=== PATIENT | female | born 1975 | race Asian ===

== ENCOUNTER 2020-10-18 10:59 | Emergency (ER) | payer OTHER ==
[~2020-10-18] VITALS: Ht 152.4 cm; Wt 76.8 kg
[2020-10-18] MEDS ORDERED: CHOL100044 PO (11:08)
[2020-10-18] MEDS ORDERED: HYDR25TA2 PO (11:08)
[2020-10-18] MEDS ORDERED: LISI-894 PO (11:08)
[2020-10-18] MEDS ORDERED: PRAV40TA4 PO (11:08)
[2020-10-18 12:10] VITALS: BP 150/95
== END 2020-10-18 12:10 | disposition home or self-care (01) ==
LOC: EMS 11:04
DX: M79.662 Pain in left lower leg (principal); E78.00 Pure hypercholesterolemia, unspecified; I10 Essential (primary) hypertension; Z79.899 Other long term (current) drug therapy
CPT/HCPCS: 93971; 99284; Z7502

== ENCOUNTER 2023-04-30 08:30 | Emergency (ER) | payer OTHER ==
[~2023-04-30] VITALS: Ht 157.5 cm; Wt 75.0 kg
[~2023-04-30 08:30] MED LIST: CHOL25TA4 PO; HYDR25TA2 PO; LISI-894 PO; PRAV40TA4 PO
[2023-04-30 08:35] VITALS: BP 163/98; PULSE 68; RESP 18; TEMP 98.5
[2023-04-30] MEDS ORDERED: PredniSONE 20 MG TABLET PO ONE (08:45)
[2023-04-30] MEDS ORDERED: DIPH25TA20 PO (08:49)
[2023-04-30] MEDS ORDERED: PRED-554 PO (08:49)
== END 2023-04-30 09:14 | disposition home or self-care (01) ==
LOC: EMS 08:30
DX: S50.862A Insect bite (nonvenomous) of left forearm, initial encounter (principal); E78.00 Pure hypercholesterolemia, unspecified; I10 Essential (primary) hypertension; Z98.890 Other specified postprocedural states; W57.XXXA Bitten or stung by nonvenomous insect and other nonvenomous arthropods, initial encounter; Y93.89 Activity, other specified; Y92.89 Other specified places as the place of occurrence of the external cause; Y99.8 Other external cause status
CPT/HCPCS: 99283; J7512